=== PATIENT | male | born 1935 | race Caucasian/White ===

== ENCOUNTER 2017-10-26 07:18 | Inpatient (IN) | payer MEDICARE ==
[2017-10-26] VITALS (29 sets, daily range): BP systolic 116–217; BP diastolic 40–87; BMI 25.1; BMI 25.0
[~2017-10-26] VITALS: Ht 177.8 cm; Wt 82.1 kg
--- NOTE | ~2017-10-26 | HP ---
PATIENT: LUIS CARDENAS MEDICAL RECORD: [id number] ACCOUNT: [id number] LOCATION:[place] [address] : 35 ADMISSION DATE: 10/26/17 HISTORY AND PHYSICAL EXAMINATION LUIS Colivn (81yo, M) ID# [id number]. Date/Time10/18/2017 03:67FKHUP18/31/1936Service Dept.NP_[facility] ClinicProviderDANIBRYAN LOZANO MDInsuranceMed Primary: [employer] (MEDICARE REPLACEMENT/ADVANTAGE - HMO) Insurance # : [id number] PCP : DARCIE MCDERMOTT Employer Name : RETIRED Prescription: DSTPSDIR - Member is eligible. Chief Complaint Carotid stenosis eval for carotid endarterectomy Patient's Care Team Primary Care Provider (): DARCIE MCDERMOTT: [address] [place] [address], [address] [id number], , Vitals BP:178/80 sitting L arm 10/18/2017 03:55 pm 184/76 sitting R arm 10/18/2017 03:57 pmBP Cuff Size:adult 10/18/2017 03:55 pm adult 10/18/2017 03:57 pmHR:66,reg 10/18/2017 03:57 pmHt:5 ft 10 in 10/18/2017 03:57 pmWt:176 lbs 10/18/2017 03:57 pmNotes:was having headaches and neck pain, MRI showed blockage in neck 10/18/2017 03:59 pmBMI:25.3 10/18/2017 03:57 pmAllergies Reviewed Allergies ADHESIVEMORPHINE: VomitingMedications Reviewed Medications amLODIPine 10 mg hzodll81/07/18 filledArg[facility] Systemscarvedilol 12.5 mg vmqotw41/07/18 filledArg[facility] Systemsclopidogrel 75 mg /07/18 filledArg[facility] Systemsdoxazosin 8 mg cojimo63/07/18 filledArg[facility] Systemsescitalopram 10 mg zwquws64/01/18 filledArg[facility] Systemsescitalopram 20 mg /07/18 filledArg[facility] SystemshydrALAZINE 50 mg nyibnr28/07/18 filledArg[facility] Systemsketoconazole 2 % bolydjm18/10/17 filledSeoPultlevothyroxine 25 mcg sylaaz82/07/18 filledSeoPultlisinopril 2.5 mg tablet TK 1 T PO D008/24/17 filledSeoPultpravastatin 80 mg opkdpa80/07/18 filledSeoPultprimidone 50 mg toznhs17/02/18 filledSeoPultterbinafine HCl 250 mg iovlpv30/10/17 filledSeoPultProblems Reviewed Problems Hypothyroidism Obstructive sleep apnea syndrome Hypertensive disorder Carotid artery stenosis Carotid artery stenosis - Onset: 10/16/2017, Left Renal artery stenosis Chronic kidney disease Family History Reviewed Family History Social History Reviewed Social History Cardiology and General Smoking Status: Former smoker HISTORY AND PHYSICAL [id number] LUIS CARDENAS High Cholesterol: Y High blood pressure: Y Chewing tobacco: none Surgical History Reviewed Surgical History Past Medical History Reviewed Past Medical History Carotid Stenosis: Y - LEFT Coronary Artery Disease: Y High Blood Pressure: Y Hyperlipidemia: Y Hypertension: Y Hypothyroidism: Y Stroke: Y Thyroid Problems: Y - HYPOTHYROIDISM Documents for Discussion N/A Screening None recorded. HPI Cerebral Vascular Disease Reported by patient. Associated Symptoms: no headache; no nausea; no vomiting; no tinnitus; no difficulty speaking; no lethargy; no fever; no chills; no palpitations; no syncope; no loss of consciousness previous left hemispheric TIA, positive Doppler for internal carotid stenosis Currently asymptomatic CTA not done due to chronic renal failure ROS Additionally reports: as reviewed in the chart with the patient On Plavix ROS as noted in the HPI Physical Exam Patient is an 81-year-old male. Constitutional: General Appearance well nourished and developed and healthy-appearing. Level of Distress NAD. Ambulation ambulating normally. Cardiovascular: Apical Impulse not displaced or no thrill. Heart Auscultation RRR and no murmurs. Arterial Pulses dorsalis pedis 2+ bilateral; 2+ bilateral radial. Edema no edema or varicosities. Lungs: Repiratory Effort no dyspnea. Percussion no hyperresonance or dullness or flatness. Auscultation no wheezing, rhonchi, or rales / crackles and breathing sounds normal and good air movement. Abdomen: Bowl Sounds normal. Inspection and Palpation no tenderness, guarding, or masses and soft and non-distended. Liver non-tender and no hepatomegaly. Spleen non-tender and no splenomegaly. Hernia none palpable. Ears, Nose, Throat: Hearing grossly normal hearing. Oropharynx: moist mucous membranes. HISTORY AND PHYSICAL [id number] LUIS CARDENAS Musculoskeletal System: Gait And Stance normal gait and stance. Digits and Nails normal nails and no cyanosis. Joints, Bones, and Musc les normal strength and movement of all extremities. Neurologic: Cranial Nerves grossly intact. Sensation grossly intact. Lymph Nodes: Lymph Nodes no cervical LAD or supraclavicular LAD. Eyes: Lids and Conjunctivae no discharge or pallor and non-injected. Pupils PERRLA. Cornea grossly intact. EOM EOMI. Lens clear. Sclerae non-icteric. Neck: Neck no masses, enlarged lymph nodes, or carotid bruits and supple and trachea midline. Thyroid no enlargement or nodules and non-tender. Skin: Inspection and Palpation no rash, lesions, ulcers, or jaundice. Assessment / Plan 1. Carotid artery stenosis - Left I65.29: Occlusion and stenosis of unspecified carotid artery CAROTID STENOSIS: CARE INSTRUCTIONS Patient Instructions continue Plavix Discussion Notes we discussed the option of carotid endarterectomy, greater than 70% symptomatic carotid stenosis with history of TIA or stroke. The patient and his understand the rationale for surgery, the alternatives, the benefits, and the risks. Consent is given CAIT LOZANO MD at 1128 CC: [id number] DICTATION DATE: 10/18/17 1530 SAILING INSTRUCTOR: DM 10/25/17 1521 ADM IN [facility] [address] [place] [address]
--- NOTE | ~2017-10-26 | OP ---
PATIENT NAME: LUIS CARDENAS MEDICAL RECORD: [id number] :35 [facility]CV[facility] ADMISSION DATE:10/26/17 SURGEON: ANDRES BARTLETT MD DATE OF OPERATION: 10/26/2017 SURGEON: Andres Bartlett MD CUSTOMER SUCCESS ADVOCATE: MICHELLE Morin OPERATION PERFORMED: Left carotid endarterectomy. PREOPERATIVE DIAGNOSIS: Symptomatic left carotid stenosis. POSTOPERATIVE DIAGNOSIS: Symptomatic left carotid stenosis. ANESTHESIA: General endotracheal anesthesia. ESTIMATED BLOOD LOSS: 20 cc. COMPLICATIONS: None. SPECIMENS: Plaque. CONDITION: Stable. DISPOSITION: CV ICU. OPERATIVE FINDINGS: 1. Irregular plaque, proximal internal carotid artery feathered well distally, tacked, and a CorMatrix patch used for closure. 2. Neurologically intact to CV ICU. INDICATION: Symptomatic left carotid stenosis, chronic renal failure. OPERATIVE PROCEDURE IN DETAIL: The patient was brought to the operating suite. General anesthesia was obtained. The patient was prepped and draped. A transverse incision was made in the neck crease. Flaps were created below the platysma muscle and the common carotid was dissected out and encircled. Then, the external carotid was dissected out. The hypoglossal nerve was kept out of harm's way. Thyroid branch encircled. Internal carotid dissected out distally to reach a relatively normal artery. A 7500 units of heparin were given. After the heparin circulated, backbleeding controlled with a bulldog clamp. Backbleeding in the external carotid controlled with vessel loop and inflow controlled with a vascular clamp. EEG was normal for 2 minutes and arteriotomy was performed. The arteriotomy was taken out through the region of calcification into a relatively normal region of internal carotid artery. The endarterectomy was begun by dividing the plaque in the common carotid artery with an eversion endarterectomy of the external carotid and then the plaque feathered well distally and was removed. Thorough irrigation was undertaken. All bits of loose debris were removed. Distally, the plaque was tacked and then a CorMatrix patch was used to fashion to the appropriate size and suture along the edges. Prior to completing the anastomosis, backbleeding was allowed from all 3 major vessels and the anastomosis was completed. Backbleeding of external carotid was allowed. Patch sutures were placed and flow was resumed and then restored flow to the internal carotid. Protamine was given. Thorough OPERATIVE REPORT [id number] LUIS CARDENAS irrigation was undertaken. A drain was placed through a separate stab wound. Hemostasis was ensured. The deep tissue was closed with 2 sutures, then subcutaneous and subcuticular, and Dermabond. Anesthesia reversed. Neurologically intact to ICU, stable. TRANSINT:[id number] Voice Confirmation ID: [id number] DOCUMENT ID: [id number] ANDRES BARTLETT MD at 1128 CC: [id number] DICTATION DATE: 10/26/17 1632 CTC OPERATOR: 10/26/17 1914 ADM IN [facility] [address] [place] [id number]
[2017-10-26 08:07] LABS: HEMOGLOBIN 9.7 g/dL (13.5-17.5); MCH 29.9 pg (26.0-34.0); MCHC 32.3 g/dL (31.0-37.0); MCV 92.6 fL (80.0-100.0); MEAN PLATELET VOLUME 11.7 fL (7.4-10.4); RBC 3.24 10x6/uL (4.20-6.10); RDW 13.4 % (11.5-14.5); WBC 5.9 10x3/uL (4.8-10.8)
[2017-10-26 08:20] LABS: APTT 36.1 SECONDS (22.8-39.4); INR 1.09 (0.85-1.17); PROTIME 13.7 SECONDS (11.6-15.0)
[2017-10-26 08:36] LABS: ALBUMIN 3.9 g/dL (3.4-5.0); ANION GAP 14.2 mmol/L (8-16); BILIRUBIN - TOTAL 0.29 mg/dL (0.2-1.3); CALCIUM 8.4 mg/dL (8.5-10.1); CARBON DIOXIDE 25.5 mmol/L (21.0-32.0); CREATININE - SERUM 4.3 mg/dL (0.6-1.3); POTASSIUM - SERUM 3.7 mmol/L (3.5-5.1); PROTEIN - SERUM 7.1 g/dL (6.4-8.2)
[2017-10-26] MEDS ORDERED: LISINOPRIL2.5 MG PO (09:29)
[2017-10-26] MEDS ORDERED: LEVOXYL25 MCG PO (09:29)
[2017-10-26] MEDS ORDERED: HYDROCHLOROTHIA25 MG PO (09:30)
[2017-10-26] MEDS ORDERED: BOTTL PO (09:30)
[2017-10-26] MEDS ORDERED: CARDURA PO (09:30)
[2017-10-26] MEDS ORDERED: NORVASC10 MG PO (09:31)
[2017-10-26] MEDS ORDERED: LEXAPRO20 MG PO (09:31)
[2017-10-26] MEDS ORDERED: PRAVACHOL80 MG (09:32)
[2017-10-26] MEDS ORDERED: HYDRALAZINE HCL50 MG PO ×2 (09:33→09:34)
[2017-10-26] MEDS ORDERED: COREG12.5 MG PO (09:34)
[2017-10-26] MEDS ORDERED: MYSOLINE 50 MG50 MG PO ×2 (09:35→09:36)
[2017-10-26] MEDS ORDERED: PLAVIX75 MG PO (09:36)
[2017-10-26] MEDS ORDERED: TYLENOL PM1 TAB PO (09:36)
[2017-10-26 11:19] LABS: APPEARANCE CLEAR (CLEAR); BACTERIA FEW /hpf (NONE SEEN); BILIRUBIN NEGATIVE (NEGATIVE); COLOR STRAW (YELLOW); EPITHELIAL CELLS RARE /hpf (0-5); GLUCOSE NEGATIVE (NEGATIVE); KETONE NEGATIVE (NEGATIVE); NITRITE NEGATIVE (NEGATIVE); PROTEIN 2+ mg/dL (NEGATIVE); RED CELLS - URINE RARE /hpf (0-5); UROBILINOGEN NORMAL (NORMAL); WHITE CELLS - URINE RARE /hpf (0-5)
[2017-10-27] VITALS (69 sets, daily range): BP systolic 19–181; BP diastolic 38–79; Ht 177.8 cm; Wt 82.1 kg
[2017-10-27 08:44] LABS: HEMATOCRIT 26.4 % (42.0-54.0); HEMOGLOBIN 8.5 g/dL (13.5-17.5); MCH 29.9 pg (26.0-34.0); MCHC 32.2 g/dL (31.0-37.0); MEAN PLATELET VOLUME 11.4 fL (7.4-10.4); RBC 2.84 10x6/uL (4.20-6.10); RDW 13.3 % (11.5-14.5)
[2017-10-27 08:55] LABS: WBC 7.8 10x3/uL (4.8-10.8)
[2017-10-27 09:11] LABS: ALBUMIN 3.2 g/dL (3.4-5.0); ANION GAP 16.5 mmol/L (8-16); BILIRUBIN - TOTAL 0.29 mg/dL (0.2-1.3); CALCIUM 7.8 mg/dL (8.5-10.1); CREATININE - SERUM 4.4 mg/dL (0.6-1.3); POTASSIUM - SERUM 3.5 mmol/L (3.5-5.1); PROTEIN - SERUM 6.1 g/dL (6.4-8.2)
[2017-10-28] VITALS (11 sets, daily range): BP systolic 110–173; BP diastolic 40–72
[2017-10-28] MEDS ORDERED: HYDRALAZINE HCL50 MG PO (10:53)
== END 2017-10-28 11:30 | disposition home or self-care (01) | DRG 38 ==
LOC: D.CVICU 07:18 → D.SDCHOLD 07:18 → D.CVICU 15:55
PROVIDERS: Thoracic Surgery (Cardiothoracic Vascular Surgery)
PROC: 03UN0JZ Supplement Left External Carotid Artery with Synthetic Substitute, Open Approach (ICD-10-PCS; 2017-10-26)
PROC: 03CN0ZZ Extirpation of Matter from Left External Carotid Artery, Open Approach (ICD-10-PCS; principal; 2017-10-26 11:30)
DX: I65.22 Occlusion and stenosis of left carotid artery (principal); N18.4 Chronic kidney disease, stage 4 (severe); I12.9 Hypertensive chronic kidney disease with stage 1 through stage 4 chronic kidney disease, or unspecified chronic kidney disease; E03.9 Hypothyroidism, unspecified; G47.33 Obstructive sleep apnea (adult) (pediatric); E78.5 Hyperlipidemia, unspecified; I70.1 Atherosclerosis of renal artery; D63.1 Anemia in chronic kidney disease; R80.9 Proteinuria, unspecified

== ENCOUNTER → 2018-05-08 10:20 | Outpatient (CLI) | payer MEDICARE ==
[2017-10-27 10:35] VITALS: BMI 27.1
[~2018-05-08 10:20] MED LIST: BOTTL PO; CARDURA PO; COREG12.5 MG PO; HYDRALAZINE HCL50 MG PO; HYDROCHLOROTHIA25 MG PO; LEVOXYL25 MCG PO; LEXAPRO20 MG PO; LISINOPRIL2.5 MG PO; MYSOLINE 50 MG50 MG PO; NORVASC10 MG PO; PLAVIX75 MG PO; PRAVACHOL80 MG; TYLENOL PM1 TAB PO
--- NOTE | 2018-05-15 11:18 | ST ---
PATIENT:LUIS CARDENAS MEDICAL RECORD: [id number] SEX: M LOCATION:[facility] ORDER #: ADMISSION DATE: 05/08/18 AGE OF PATIENT: 82 REFERRING PHYSICIAN: INTERPRETING PHYSICIAN: EARL LORENZANA MD DATE OF SERVICE: 05/08/2018 Nuclear Stress Test INDICATIONS: Abnormal ECG, atrial fibrillation, hypertension, and hyperlipidemia. He was exercised on standard Lexiscan protocol with 33 mCi of sestamibi injected at peak stress, 11 mCi were used previously for rest images. FINDINGS: Gated SPECT reveals preserved ejection fraction at 48% with good wall motion and thickening and brightening throughout all segments. SPECT imaging Cardiolite was used as myocardial fusion agent. There is homogeneous uptake throughout all segments at rest and stress with no evidence of inducible ischemia or previous infarction. OVERALL IMPRESSION: 1. This is a normal nuclear stress test with no evidence of inducible ischemia or previous infarction. 2. Gated SPECT reveals a preserved ejection fraction at 48%. In this patient with ongoing symptomatology, the current scan does not suggest the presence of hemodynamically significant coronary artery disease. Evaluate noncardiac etiology of chest pain. TRANSINT:[id number] Voice Confirmation ID: [id number] DOCUMENT ID: [id number] EARL LORENZANA MD at 1118 CC: [id number] DICTATION DATE: 05/08/18 1628 DIRECTOR DRUG: 05/09/18 0537 DEP CLI 05/08/18 [place] [id number] [place] [address]
== END | disposition home or self-care (01) ==
LOC: D.HCCARDIO 10:20
DX: I48.91 Unspecified atrial fibrillation (principal)

== ENCOUNTER → 2019-03-26 12:29 | Outpatient (CLI) | payer MEDICARE ==
[2017-10-27 10:35] VITALS: BMI 27.1
--- NOTE | 2019-03-28 12:06 | EC ---
PATIENT:LUIS CARDENAS DATE OF SERVICE: 03/26/19 SEX: M MEDICAL RECORD: [id number] DATE OF : 35 LOCATION:D.[facility] AGE OF PATIENT: 83 ADMISSION DATE: 03/26/19 REFERRING PHYSICIAN: INTERPRETING PHYSICIAN: ELIAS PEDERSON MD ECHOCARDIOGRAM REPORT ECHO CHARGES 4 ECHO COMPLETE Date: 03/26/19 CLINICAL DIAGNOSIS: AI H/O HTN/A-FIB ECHOCARDIOGRAPHIC MEASUREMENTS (adult normal given) AC root (d.<3.7cm) 3.4 cm LV Septum d (<1.2 cm> 1.4 cm Valve Excursion 2.0 cm LV Septum (systole) 2.0 cm Left Atria (s.<4.0cm> 3.9 cm LVPW d(<1.2cm) 1.5 cm RV (d.<2.3cm) 2.3 cm LVPW (sytole) 2.5 cm LV diastole(<5.6CM) 5.6 cm MV E-F(>70mm/sec) cm LV systole 2.5 cm LVOT Diameter 1.8 cm MV exc.(>10mm) cm Est.ejection fraction (50-75%) % DOPPLER: LVIT cm/sec A 86.0 cm/sec E 72.0 cm/sec LA cm/sec RVSP 44.0 mmHg LVOT 166 cm/sec AOP1/2T m/s Asc. 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 Brambila TAPE# PACS Pericardial Effusion N DATE OF SERVICE: Adequate 2D, Color Flow, Spectral Doppler, and M-Mode LVH is present. LV internal dimensions are normal. Wall motion is normal. EF greater than 55%. Aortic valve sclerosis without stenosis by Doppler interrogation. There is wjat-hp-xnmfzbph AI by color flow imaging. Left atrium is normal at 3.9 cm. Mitral valve shows no prolapse. Mild MR. Right-sided chambers are grossly normal. Moderate TR with color flow imaging. ECHOCARDIOGRAM REPORT [id number] LUIS CARDENAS TRANSINT:[id number] Voice Confirmation ID: [id number] DOCUMENT ID: [id number] ELIAS PEDERSON MD at 1206 CC: [id number] DICTATION DATE: 03/27/19 1323 ROLLER EMBOSSER: 03/27/19 2150 [facility] CLI 03/26/19 [place] [id number] [place] [id number]
== END | disposition home or self-care (01) ==
LOC: D.HCCECHO 12:29
PROVIDERS: ATTEND Internal Medicine Interventional Cardiology
DX: I10 Essential (primary) hypertension (principal)

== ENCOUNTER → 2019-10-02 11:12 | Outpatient (CLI) | payer MEDICARE ==
[2017-10-27 10:35] VITALS: BMI 27.1
[2019-10-02 12:28] LABS: ALBUMIN 3.4 g/dL (3.4-5.0); ANION GAP 10.9 mmol/L (8-16); BILIRUBIN - TOTAL 0.23 mg/dL (0.2-1.3); CALCIUM 9.5 mg/dL (8.5-10.1); CARBON DIOXIDE 31.8 mmol/L (21.0-32.0); CREATININE - SERUM 10.6 mg/dL (0.6-1.3); POTASSIUM - SERUM 3.7 mmol/L (3.5-5.1); PROTEIN - SERUM 6.8 g/dL (6.4-8.2)
== END | disposition home or self-care (01) ==
LOC: D.LAB 11:12
PROVIDERS: ATTEND Nurse Practitioner Family
DX: M25.512 Pain in left shoulder (principal); M25.511 Pain in right shoulder